=== PATIENT | male | born 1995 | race Caucasian/White ===

== ENCOUNTER 2022-08-06 10:30 | Emergency (ER) | payer OTHER, BC, SELFPAY ==
[2022-08-06 10:54] VITALS: BP 129/89; PULSE 71; RESP 16; TEMP 36.2; O2SAT 100; BMI 27.3
--- NOTE | 2022-08-06 12:30 | ED.NURSE ---
finger soaking in saline. Dr. Mederos in room.
--- NOTE | 2022-08-06 12:41 | ED.WOUNDLAC ---
HPI - Wound/Laceration General Time Seen by Provider: 12:30 Date Seen: 08/06/22 Chief Complaint: Laceration/Wound Stated Complaint: Lac L thumb Time Seen by Provider: 08/06/22 12:26 Source: patient and RN notes reviewed Mode of arrival: ambulatory Limitations: no limitations History of Present Illness HPI narrative: 19-year-old male who comes in today with laceration left thumb. This occurred at work while he was working with some metal. Due to ongoing bleeding, patient came to the emergency department., unsure last tetanus. Related Data Allergies Allergy/AdvReac Type Severity Reaction Status Date / Time No Known Drug Allergies Allergy Verified 08/06/22 10:59 Exam Narrative: Exam Narrative: General: well nourished , NAD Head: Atraumatic and normocephalic ENT: External ears and external nose are normal Eyes: Conjunctiva clear, pupils are equal reactive, external ocular motions are intact Neck: Full spontaneous range of motion of the neck Lungs: No respiratory distress Musculoskeletal: No tenderness or deformity Neurologic: No gross focal neurologic deficits Skin: Left thumb 2 cm irregular flap laceration of the proximal phalanx on the palmar aspect, no active bleeding, full flexion and extension at the IP and MCP joints Psych: Mood and affect are appropriate Const: Vital Signs, click to edit/add: Vital Signs - 24 hr 08/06/22 10:54 Temperature 97.2 F L Pulse Rate [Pulse Oximeter] 71 Respiratory Rate 16 Blood Pressure [Ri ght Upper Arm] 129/89 Pulse Oximetry 100 Oxygen Delivery Me thod Room Air Course Course Hospital Course: Patient seen and examined, prior records are reviewed. Patient presents with a laceration of the left thumb. This was soaked prior to my evaluation and further scrubbed with wound cleanser. The flap was pulled back, no foreign bodies are seen. Edges were approximated and wound was closed with tissue adhesive. Patient tolerated this well. Will check tetanus and update if needed. Vital Signs Vital signs: Initial Vital Signs Temperature 97.2 F L 08/06/22 10:54 Temperature Source Temporal Artery Scan 08/06/22 10:54 Pulse Rate 71 08/06/22 10:54 Pulse Rhythm Regular 08/06/22 10:54 Respiratory Rate 16 08/06/22 10:54 Blood Pressure 129/89 08/06/22 10:54 Blood Pressure Mean 102 08/06/22 10:54 Pulse Oximetry 100 08/06/22 10:54 Oxygen Delivery Method Room Air 08/06/22 10:54 Vital Signs Temperature 97.2 F L 08/06/22 10:54 Pulse Rate 71 08/06/22 10:54 Respiratory Rate 16 08/06/22 10:54 Blood Pressure 129/89 08/06/22 10:54 Pulse Oximetry 100 08/06/22 10:54 Oxygen Delivery Method Room Air 08/06/22 10:54 Temperature 97.2 F L 08/06/22 10:54 Pulse Rate 71 08/06/22 10:54 Respiratory Rate 16 08/06/22 10:54 Blood Pressure 129/89 08/06/22 10:54 Pulse Oximetry 100 08/06/22 10:54 Oxygen Delivery Method Room Air 08/06/22 10:54 Discharge Plan Discharge Clinical Impression: Laceration of left thumb Patient Disposition: Home, Self-Care Condition: Stable Instructions: Skin Adhesive Care (ED) Activity Level: Activity as Tolerated Discharge Diet: Regular Stand Alone Forms: My[employer] Info Instructions
--- NOTE | 2022-08-06 12:51 | ED.NURSE ---
Pt lac on L thumb bandaged with telfa and wrapped with coban. Thumb splint applied over bandage and wrapped with coban.
[2022-08-06] MEDS: TETANUS/DIPHTH/PERTUSSIS 0.5 ML SYRINGE IM (13:15)
== END 2022-08-06 13:17 | disposition home or self-care (01) ==
PROVIDERS: Emergency Provider Family Medicine
DX: S61.012A Laceration without foreign body of left thumb without damage to nail, initial encounter (principal); W26.8XXA Contact with other sharp object(s), not elsewhere classified, initial encounter; Y99.0 Civilian activity done for income or pay
CPT/HCPCS: 90471; 90715; 99283

== ENCOUNTER 2023-05-08 21:30 | Emergency (ER) | payer BC, SELFPAY ==
[2023-05-08 21:43] VITALS: BP 137/87; PULSE 86; RESP 16; TEMP 37.1; O2SAT 97; BMI 28.7
--- NOTE | 2023-05-08 21:50 | ED.GENADULT ---
HPI - General Adult General Time Seen by Provider: 21:51 Date Seen: 05/08/23 Chief complaint: Headache/Migraine Stated complaint: vomiting, diarrhea, severe headache Time Seen by Provider: 05/08/23 21:50 Source: patient and RN notes reviewed Mode of arrival: ambulatory Limitations: no limitations History of Present Illness HPI narrative: This 27-year-old male is coming in accompanied by his significant other with complaint of headache, inability to eat or drink anything, nausea vomiting and diarrhea. He has had a headache for about 4 days, vomiting started yesterday morning probably upon awakening. He has continued to vomit, cannot keep anything down. He has not had anything to eat or drink since yesterday. He is still making small amounts of concentrated urine that patel a bit because it is so concentrated. He has had diarrhea. Vomiting diarrhea are nonbloody. He has not taken his temperature but he has had chills, night sweats throughout this. They have a baby at home, obviously concerned about illness. He is not aware of any definite ill contacts. He denies any cough, no nasal drainage, no sore throat. He is not having any abdominal pain. There are no neurologic changes with his headache. Related Data Home Medications Medication Instructions Recorded Confirmed No Known Home Medications 05/08/23 05/08/23 Allergies Allergy/AdvReac Type Severity Reaction Status Date / Time No Known Drug Allergies Allergy Verified 05/08/23 21:43 Review of Systems Status of ROS: Reports: 6 or more systems reviewed and unremarkable except as noted in History and below PFSH [facility] Social History Smoking Status: Former smoker How often do you have a drink containing alcohol: 4 or more times a week How many standard drinks containing alcohol do you have on a typical day: 1 or 2 How often do you have six or more drinks on one occasion: Never AUDIT-C Alcohol total score: 4 Non-prescribed substance use: marijuana (any form) Exam Const: Vital Signs, click to edit/add: Vital Signs - 24 hr 05/08/23 21:43 Temperature 98.8 F Pulse Rate [Pulse Oximeter] 86 Respiratory Rate 16 Blood Pressure [Ri ght Upper Arm] 137/87 Pulse Oximetry 97 Patient is alert, interactive, no apparent distress come ambulatory into the ED of his own accord. He is lying in the bed in exam room 5. Pupils are equal round reactive, sclera clear, conjugate gaze symmetrical facial function noted. Oropharynx no mucosa, no exudates or erythema. Oral mucosa is not excessively dry. No midline tenderness of his neck, no cervical adenopathy, neck is supple. Lungs are clear, good air entry, no wheezing or crackles. CV regular rate and rhythm, no murmur, normal S1-S2, no S3-S4. Abdomen is soft, nondistended, bowel sounds are distant. Very minimal left upper quadrant tenderness but really no rebound or guarding, no masses. Patient is ambulatory into the ED of his own accord, nonfocal neurologic exam. Documenting provider has reviewed patient's vital signs: yes Course Course ED Course: Have discussed that he definitely has infectious etiology for his symptoms. We specifically did discuss meningitis which I am not concerned of, no nuchal rigidity, looks quite well. Headache certainly can be part of viral illnesses which I do believe he probably has. We are seen gastroenteritis here. We will do the viral triple swab, get full complement of labs, give patient IV fluids in 4 mg IV Zofran, see if he can tolerate orals. IA do not believe he needs any abdominal imaging, highly unlikely to be any acute surgical issue given the symptom presentation and benign abdominal exam. Reevaluation(s) Time of Reevaluation #1: 23:27 Reevaluation #1: Patient is feeling maybe a little better, reviewed his labs. We did discuss the negative triple viral swab which they were relieved. I still believe that he has gastroenteritis, viral which certainly is infectious. We discussed safe measures such as hand washing common of sharing a food utensils to help protect the baby and his . We will do a 2 L of fluids in then plan to discharge to home with Zofran. Vital Signs Vital signs: Initial Vital Signs Temperature 98.8 F 05/08/23 21:43 Temperature Source Temporal Artery Scan 05/08/23 21:43 Pulse Rate 86 05/08/23 21:43 Respiratory Rate 16 05/08/23 21:43 Blood Pressure 137/87 05/08/23 21:43 Blood Pressure Mean 103 05/08/23 21:43 Blood Pressure Position High-Fowlers 05/08/23 21:43 Pulse Oximetry 97 05/08/23 21:43 Vital Signs Temperature 98.8 F 05/08/23 21:43 Pulse Rate 86 05/08/23 21:43 Respiratory Rate 16 05/08/23 21:43 Blood Pressure 137/87 05/08/23 21:43 Pulse Oximetry 97 05/08/23 21:43 Temperature 98.8 F 05/08/23 21:43 Pulse Rate 86 05/08/23 21:43 Respiratory Rate 16 05/08/23 21:43 Blood Pressure 137/87 05/08/23 21:43 Pulse Oximetry 97 05/08/23 21:43 Medications Administered Medications: Generic Name Dose Route Start Last Admin Trade Name Freq PRN Reason Stop Dose Admin Sodium Chloride 1,000 mls @ 1,000 mls/hr 05/09/23 00:04 05/09/23 00:06 0.9 % Sodium Chloride 1000 Ml IV 05/09/23 01:03 Infused .Q1H CORNELIUS Infusion Discontinued Medications Generic Name Dose Route Start Last Admin Trade Name Freq PRN Reason Stop Dose Admin Sodium Chloride 1,000 mls @ 1,000 mls/hr 05/08/23 22:00 05/08/23 23:15 0.9 % Sodium Chloride 1000 Ml IV 05/08/23 22:59 Infused .Q1H CORNELIUS Infusion Ketorolac Tromethamine 15 mg 05/08/23 21:59 05/08/23 22:20 Ketorolac 15 Mg/Ml Inj IVP 05/08/23 22:00 15 mg ONCE ONE Administration Ondansetron HCl 4 mg 05/08/23 21:59 05/08/23 22:20 Ondansetron 2 Mg/Ml Inj IVP 05/08/23 22:00 4 mg ONCE ONE Administration Medical Decision Making Lab Data Lab results reviewed: Yes I reviewed the patient's lab results Labs: Lab Results 05/08/23 Range/Units 22:20 WBC 6.09 (4.50-11.00) K/uL RBC 5.03 (4.30-5.90) m/uL Hgb 15.1 (13.5-17.5) gm/dL Hct 43.6 (37.0-53.0) % MCV 87 (80-100) fL MCH 30 (26-34) pg MCHC 35 (32-36) gm/dL RDW Coeff of Buzz 11.5 (11.5-15.5) % Plt Count 207 (140-440) K/uL Neut % (Auto) 79.1 H (42.0-72.0) % Lymph % (Auto) 12.3 L (20-44) % [place] % (Auto) 8.2 (0.0-11.0) % Eos % (Auto) 0.2 (0.0-7.0) % Baso % (Auto) 0.0 (0.0-3.0) % Neut # (Auto) 4.80 (1.7-7.0) K/uL Lymph # (Auto) 0.70 L (0.90-2.90) K/uL [place] # (Auto) 0.50 (0.00-0.90) K/UL Eos # (Auto) 0.01 (0.00-0.50) K/uL Baso # (Auto) 0.00 (0.00-0.30) K/uL Abs Immat Gran (auto) 0.01 (0.00-0.30) K/uL Imm/Tot Granulo (auto) 0.2 % Sodium 136 (135-149) mmol/L Potassium 3.3 L (3.6-5.1) mmol/L Chloride 105 (96-114) mmol/L Carbon Dioxide 21 (20-32) mmol/L Anion Gap 10 (7-15) mEq/L BUN 18 (5-24) mg/dL Creatinine 0.8 (0.5-1.5) mg/dL Estimated Creat Clear 141.94 Estimated GFR 124 ml/min Glucose 102 (60-115) mg/dL Lactate 0.7 (0.5-1.9) mmol/L Calcium 9.3 (8.4-10.6) mg/dL C-Reactive Protein 4.3 H (0.5-1.0) mg/dL SARS-CoV-2 (PCR) Negative SARS-CoV-2 (Negative) Influenza Type A (PCR) Negative PCR FLU A (Negative) Influenza Type B (PCR) Negative PCR FLU B (Negative) RSV (PCR) Negative PCR RSV (Negative) Discharge Plan Discharge Clinical Impression: Gastroenteritis Patient Disposition: Home, Self-Care Condition: Stable Instructions: Gastroenteritis (ED) Additional Instructions: Can use Zofran 4 mg up to 3 times a day as needed for any further nausea or vomiting. Try to take frequent small sips of fluids until you are improving. Can advance your diet back to solids as you feel better. It is fine to try Tylenol and ibuprofen for body aches and headache control, hopefully with the use of the Zofran you will be able to tolerate this. If you are not improving in the next couple days, feel you are worsening at any point or have other concerns, please seek re-evaluation. Prescriptions: No Action No Known Home Medications Follow Up/Referrals: Provider,Not a Local [Primary Care Provider] - Stand Alone Forms: [employer] Info Instructions
[2023-05-08] MEDS: 0.9 % SODIUM CHLORIDE 1000 ml 1,000 ML IV ×2 (22:20→23:00)
[2023-05-08] MEDS: ONDANSETRON 2 MG/ML inj 4 MG IVP (22:20)
[2023-05-08] MEDS: KETOROLAC 15 MG/ML inj IVP (22:20)
[2023-05-08 22:31] LABS: Lactate* 0.7 mmol/L (0.5-1.9)
[2023-05-08 22:46] LABS: Chloride* 105 mmol/L (96-114); Sodium* 136 mmol/L (135-149)
[2023-05-08 22:47] LABS: Potassium* 3.3 mmol/L (3.6-5.1)
[2023-05-08 22:49] LABS: Creatinine* 0.8 mg/dL (0.5-1.5); Est. Creatinine Clearance* 141.94; Estimated Glomerular Filt Rate 124 ml/min
[2023-05-08 22:50] LABS: Anion Gap 10 mEq/L (7-15); Blood Urea Nitrogen* 18 mg/dL (5-24); Calcium* 9.3 mg/dL (8.4-10.6); Carbon Dioxide* 21 mmol/L (20-32); Glucose* 102 mg/dL (60-115)
[2023-05-08 22:53] LABS: C Reactive Protein* 4.3 mg/dL (0.5-1.0)
[2023-05-08 22:57] LABS: Eosinophils Absolute Auto 0.01 K/uL (0.00-0.50); Eosinophils Percent Auto 0.2 % (0.0-7.0); Hematocrit 43.6 % (37.0-53.0); Hemoglobin* 15.1 gm/dL (13.5-17.5); Immature Granulocytes Abs Auto 0.01 K/uL (0.00-0.30); Immature Granulocytes Pct Auto 0.2 %; Lymphocytes Percent Auto 12.3 % (20-44); Mean Corpuscular HGB Conc 35 gm/dL (32-36); Mean Corpuscular Hemoglobin 30 pg (26-34); Mean Corpuscular Volume 87 fL (80-100); Monocytes Percent Auto 8.2 % (0.0-11.0); Neutrophils Percent Auto 79.1 % (42.0-72.0); Platelet Count* 207 K/uL (140-440); RDW Coefficient of Variation % 11.5 % (11.5-15.5); Red Blood Count 5.03 m/uL (4.30-5.90); White Blood Count* 6.09 K/uL (4.50-11.00)
[2023-05-08 22:58] LABS: Slide Review Reflex No
[2023-05-08 23:11] LABS: PCR FLU A Negative PCR FLU A (Negative); PCR FLU B Negative PCR FLU B (Negative); PCR RSV Negative PCR RSV (Negative); SARS PCR* Negative SARS-CoV-2 (Negative)
== END 2023-05-09 00:28 | disposition home or self-care (01) ==
PROVIDERS: Emergency Provider Family Medicine
DX: K52.9 Noninfective gastroenteritis and colitis, unspecified (principal)
CPT/HCPCS: 36415; 80048; 83605; 85025; 86140; 87631; 96361; 96374; 96375; 99284; J1885; J2405; J7030